=== PATIENT | female | born 1970 | race Two or more races ===

== ENCOUNTER 2016-06-08 07:01 | Day surgery (SDC) | payer OTHER ==
[~2016-06-08 07:01] MED LIST: CEFAZOLIN SODIUM 2 GRAM PREMIX 100 ML IV PRN
[2016-06-08] MEDS ORDERED: CEFAZOLIN SODIUM 2 GRAM PREMIX 100 ML IV ONE (07:07)
[2016-06-08] MEDS ORDERED: DEXAMETHASONE SOD PHOS 4 MG/1 ML VIAL ONE ×3 (07:24→10:58)
[2016-06-08] MEDS ORDERED: ROPIVACAINE 0.5% 30 ML VIAL ONE ×2 (07:24→10:58)
[2016-06-08] MEDS ORDERED: MIDAZOLAM HCL 1 MG/ML 2ML VIAL ONE ×2 (08:22→10:59)
[2016-06-08] MEDS ORDERED: FENTANYL 250 MCG/5 ML AMP ONE (08:23)
[2016-06-08] MEDS ORDERED: PROPOFOL 20 ML IV ONE (08:38)
[2016-06-08] MEDS ORDERED: BUPIVACAINE 0.5% (PRES FREE) 30 ML VIAL ONE (08:41)
--- NOTE | 2016-06-08 08:46 | HP ---
DATE OF CLINIC: 06/03/2016 HOLLEY YBARRA : 1970 PLANNED PROCEDURE: Right Distal Radius Open Reduction Internal Fixation DATE OF SURGERY: June 08, 2016 SURGEON: Jorje Babcock M.D. PCP: [facility] HISTORY OF PRESENT ILLNESS Holley Natarajan is a 45 year old female. * Medication list reviewed with patient allergy list reviewed with patient. * Tried NSAIDS * Has not tried Physical Therapy * Has not tried Injections A 45-year-old female who sustained a fall on May 27, 2016 while at work, working in a field. She landed on her right wrist and had immediate pain and deformity. She was seen at [facility] and x-rays were obtained which demonstrated an extra articular right distal radius fracture. She was splinted and sent here for follow up. She has not yet made her first appointment with her Workman's Comp attending , but is scheduled to see Jasmyn Meehan. At this point she complains of isolated right wrist pain. She has no previous injuries at this site. She has no other extremity complaints. She denies any numbness or tingling in the hand. PAST MEDICAL AND SURGICAL HISTORY: Her past medical and surgical history are as documented in her intake questionnaire. CURRENT MEDICATION * Ibuprofen 600 MG Tablet 1 by mouth three times a day with food, 20 days, 0 refills * tylenol unk Tablet 0 days, 0 refills PAST MEDICAL/SURGICAL HISTORY Reported: Medical: A previous fracture Right wrist distal radius fracture, Date of injury 05/27/16. SOCIAL HISTORY Behavioral: No caffeine use, not a current smoker, and smoking status: Never smoker. Alcohol: No consumption of alcohol and not using alcohol. Drug Use: Not using drugs. Work: Occupation farm/field handyman. Marital: Marital history . Sales Program Manager's Language: KARYNA Yin. ALLERGIES * No Known Allergies FAMILY HISTORY Children living - Pt has children, did not answer how many REVIEW OF SYSTEMS No recent constitutional symptoms to include fevers and chills. No recent cardiovascular symptoms to include chest pain or palpitations. No recent respiratory symptoms to include shortness of breath or recent infections. PHYSICAL FINDINGS * Vitals taken 06/03/2016 02:03 pm BP-Sitting L 124/89 mmHg BP Cuff Size Regular Pulse Rate-Sitting 74 bpm Temp-Oral 98 F Height 58 in Weight 121 lbs 12.8 oz Body Mass Index 25.5 kg/m2 Body Surface Area 1.48 m2 Pain Level 3 Ears, Nose, Throat: * ENT: normal. Lungs: * Clear to auscultation. Cardiovascular: Heart Rate and Rhythm: * Normal. Abdomen: * Normal. Patient is a well-developed, well-nourished female in no acute distress. They are awake, alert and conversant throughout the encounter. She was a primary Wolof speaker and interpretation services were used throughout the encounter. CARDIOVASCULAR: Intact peripheral pulses on bilateral upper extremities. No significant edema on inspection of bilateral upper extremities. NEUROLOGIC: Patient had intact coordinated composite motion of the bilateral upper extremities and sensation intact to light touch in all distributions of bilateral upper extremities. PSYCHIATRIC: Patient was oriented to person, place and time and displayed appropriate mood and affect during the encounter. SKIN: Exam of the skin on bilateral upper extremities showed no significant scars, lesions, rashes or masses. FOCUSED MUSCULOSKELETAL EXAM: The patient has swelling and ecchymosis about her right wrist. She is tender to palpation. Her motion at the wrist and the elbow is limited secondary to pain. She is neurologically intact in the radial, ulnar, median, AIN and PIN distributions. She has a warm and well perfused and distally. She has got it motion at the elbow and flexion, in flexion and extension it is limited impregnation supination secondary to pain. IMAGING: A review of her x-rays shows that extra-articular distal radius fracture with approximately 20 degrees of dorsal angulation and loss of radial inclination as well. See the radiologist interpretation for additional detail. ASSESSMENT A 45-year-old right-hand dominant female with an acute right distal radius fracture with unacceptable alignment parameters. THERAPY * Patient not eligible for fall risk assessment. PLAN * Oth extrartic fracture of lower end of right radius, init Percocet 5-325 MG TABS, Take 1-2 tablets every 4 hours as needed for pain, 7 days, 0 refills * Open treatment of fracture of distal radius -right Open reduction internal fixation using the Synthes distal volar radius plate to restore her dorsal tilt and radial inclination. Risks, benefits and alternatives were discussed with the patient and she elected to proceed. Informed consent was obtained and documented in the chart. We re-splinted her today at the clinic and we will see her back next week for open reduction internal fixation. CARE TEAM [facility] ([facility]) SURGICAL CONSENT We have discussed surgical options including ORIF of right distal radius fracture and non-operative management. The patient was counseled in detail regarding the diagnosis, treatment options available, prognosis of each treatment option and the potential risks and complications. The risks of surgery include, but are not limited to, anesthetic , neurovascular complications, pulmonary embolism, deep vein thrombosis, wound dehiscence, failure of any or all of the discussed procedures, infection of the joint or surrounding soft tissue, need for revision surgery, chronic pain, limitations in activities of daily living, inability to return to work, and loss of normal range of motion or functional use of the extremity. There is the possibility of failure over time that may require additional operative or non-operative treatment. The patient acknowledged that there are a number of perioperative risks not mentioned here and would still like to proceed. The patient is aware of and understands these risks, and wishes to proceed with the proposed surgical procedure and other procedures as indicated at the time of surgery. We will have the patient see their PCP for a preoperative medical risk assessment. The preoperative instructions were reviewed with the patient and all questions were answered. PB/sg
[2016-06-08] MEDS ORDERED: KETAMINE HCL UD SYRINGE 100 MG/2 ML IV ONE (09:01)
[2016-06-08] MEDS ORDERED: MORPHINE SULFATE 4 MG/ML SYRINGE IV PRN (09:11)
[2016-06-08] MEDS ORDERED: ONDANSETRON 4 MG/2ML 2 ML VIAL IV PRN ×2 (09:11→11:46)
[2016-06-08] MEDS ORDERED: PROMETHAZINE HCL 25 MG/ML VIAL IM PRN ×2 (09:11→14:58)
[2016-06-08] MEDS ORDERED: LACTATED RINGERS 1,000 ML IV SCH ×2 (09:15→11:46)
[2016-06-08] MEDS ORDERED: ONDANSETRON 4 MG/2ML 2 ML VIAL ONE ×2 (10:09→14:23)
--- NOTE | 2016-06-08 10:20 | PCMBPN ---
Brief Post Op Note: Date of Procedure: 06/08/16 Start Time: 0900 Preoperative Diagnosis: 1. right distal radius fracture Postoperative Diagnosis: 1. Same Procedure: right distal radius ORIF Surgeon: Jorje Babcock MD Assist: Kaushik Kaminski PA-C Anesthesia: Terri Mejia Findings: as above Condition: stable to PACU Complications: none IV Fluids: 700 mLs of LR Urine Output: 0 mLs Estimated Blood Loss: 5 mLs Tourniquet Time: 55 min at 250 mm Hg Specimens: none Implants: Accumed distal volar radius plate, locking screws distally and cortical screws proximally Drains: none Jorje Babcock MD
--- NOTE | 2016-06-08 10:40 | RAD ---
EXAMINATION:WRIST RIGHT 2 VIEWS CLINICAL INDICATION: ORIF right wrist. COMPARISON: 05/28/2016 FINDINGS: Fluoroscopic assistance was provided. 46 seconds of fluoroscopy time was used for volar plate fixation distal radial fracture. 2 fluoroscopic spot images were generated. Transverse ulnar styloid process fracture is noted. Joint space relationships are maintained. IMPRESSION: 1. 46 seconds of fluoroscopic assistance was provided for ORIF radial fracture. 2. Satisfactory postoperative appearance. Ulnar solid process fracture is noted.
[2016-06-08] MEDS ORDERED: FENTANYL 100 MCG/2 ML VIAL ONE ×2 (10:41→11:01)
[2016-06-08] MEDS: FENTANYL 100 MCG/2 ML VIAL IV PRN ×2 (10:44→10:50)
[2016-06-08] MEDS ORDERED: MORPHINE SULFATE 4 MG/ML SYRINGE ONE (10:58)
[2016-06-08] MEDS ORDERED: DIPHENHYDRAMINE HCL 50 MG/1 ML VIAL IV PRN (11:46)
[2016-06-08] MEDS ORDERED: OXYCODONE/ACETAMINOPHEN 5/325 MG TABLET PO PRN (11:46)
[2016-06-08] MEDS ORDERED: HYDROMORPHONE HCL 1 MG/ML SYRINGE IV PRN (11:46)
[2016-06-08] MEDS ORDERED: ACETAMINOPHEN 325 MG TABLET PO PRN (11:46)
--- NOTE | 2016-06-08 12:22 | RAD ---
EXAMINATION:WRIST RIGHT 2 VIEWS CLINICAL INDICATION: ORIF right wrist fracture. COMPARISON: 05/28/2016. FINDINGS: A Bohler compression plate transfixes the probably transverse fracture of the distal right radial metaphysis. There are 5 proximal fixation screws and 3 distal diaphyseal fixation screws. Alignment at the fracture site as improved significantly and is now near anatomic. Fragment position is satisfactory. A transverse fracture of the ulnar solid process with moderate diastases is similar to the prior study. The radiocarpal and intercarpal joint space relationships of the right wrist are maintained. An overlying cast obscures fine bony detail and the soft tissues. Slight soft tissue disruption compatible with recent postoperative changes noted. IMPRESSION: Satisfactory postoperative appearance ORIF distal right radial fracture. Transverse fracture of the ulnar styloid process is noted.
[2016-06-08] MEDS ORDERED: OXYCODONE/ACETAMINOPHEN 5/325 MG TABLET ONE (13:52)
[2016-06-08] MEDS ORDERED: PROMETHAZINE HCL 25 MG/ML VIAL ONE (14:46)
--- NOTE | 2016-06-08 15:06 | OP ---
Eleonora YBARRA : 1970 [id number] DATE OF SERVICE: June 07, 2016 PREOPERATIVE DIAGNOSIS: Right distal radius fracture. POSTOPERATIVE DIAGNOSIS: Right distal radius fracture. PROCEDURE PERFORMED: RIGHT DISTAL RADIUS OPEN REDUCTION INTERNAL FIXATION. SURGEON: Jorje Babcock M.D. TOOLROOM CLERK: Kaushik Kaminski P.A.-C. ANESTHESIA: Antonia Mejia, C.R.N.A. SPECIMENS: No material was sent to the laboratory. ESTIMATED BLOOD LOSS: 5 mL FLUIDS REPLACED: 700 mL of crystalloid. TOURNIQUET TIME: 55 minutes at 250 mmHg. IMPANTS: Accumed distal volar radius plate with a locking screws distally and cortical screws proximally. INDICATIONS: This is a 45-year-old right-hand dominant female who fell and sustained a right distal radius fracture. Her alignment parameters were unacceptable and she was counseled that we would recommend an open reduction internal fixation in order to restore her to an appropriate alignment and prevent complications. Risks, benefits and alternatives were discussed and she was eager to proceed with surgery. DESCRIPTION OF PROCEDURE: The patient was identified in the pre-operative holding area where she was marked with an indelible marker by the operating surgeon. She was then taken to the operating room where she was placed in supine position on the operating room table. General anesthesia was induced, perioperative antibiotics were administered. A well padded pre-calibrated nonsterile tourniquet was placed on her right upper arm. She was prepped and draped in the usual sterile fashion for surgery. An operative time out was performed and confirmed by all members of the operative team. The arm was elevated and exsanguinated using an Esmarch bandage and the tourniquet was inflated to 250 mmHg. A longitudinal incision was made overlying the FCR tendon. The tendon sheath was retracted radially and we entered the floor of the FCR tendon sheath. The supinator was peeled and the distal radius was exposed. We were able to see the full metaphysis and epiphyseal region of the distal radius. A provisional reduction was obtained and confirmed using intraoperative fluoroscopy and then a volar plate was brought onto the field, pinned in place and the distal screws were placed obtaining good solid fixation of the distal fragment. This was then reduced to the shaft and when we confirmed our alignment, we placed three cortical screws proximally apposing the plate to the shaft. Final AP and lateral images were obtained which documented appropriate reduction parameters for the distal radius and good overall alignment with appropriate position of all hardware. The wound was copiously irrigated with sterile saline and closed in layers with #2-0 Vicryl deep to the tendon, #3-0 Vicryl superficial to the tendon and #4-0 Nylon in the skin. A sterile dressing of Xeroform, fluffs, web roll and a volar slab splint was placed and held in place with an ABHISHEK bandage. The tourniquet was deflated, the drapes were removed. The patient was awakened from her anesthesia, extubated in the operating room without difficulty. Transferred to a stretcher and taken postoperatively to the postanesthesia care unit in stable condition. There were no observed intraoperative complications during this procedure. Job [id number] Cc: [facility]
== END 2016-06-08 16:15 | disposition home or self-care (01) ==
LOC: SDC 07:01
PROVIDERS: ATTEND Orthopaedic Surgery
DX: S52.551A Other extraarticular fracture of lower end of right radius, initial encounter for closed fracture (principal)
CPT/HCPCS: 76000; 73100 ×2; 25607; J3010 ×3; J1100 ×3; J2270; J2795; A9270; J2550; J2250 ×2; J2405 ×2; J0690